=== PATIENT | male | born 1945 | race Caucasian/White ===

== ENCOUNTER 2019-11-15 11:11 | Emergency (ER) | payer MEDICARE ==
[~2019-11-15] VITALS: Ht 177.8 cm; Wt 104.7 kg
--- NOTE | 2019-11-15 11:56 | NUR ---
Patient from triage reports groin pain. Does state he has intermittent balance issues and leg weakness. Denies any other complaints at this time. NAD noted. RR even and unlabored.
[2019-11-15 12:08] LABS: BASOPHILS # (AUTO) 0.02 x10^3/uL (0-0.1); BASOPHILS % (AUTO) 0 % (0-1); EOSINOPHILS # (AUTO) 0.12 x10^3/uL (0-0.4); EOSINOPHILS % (AUTO) 2 % (1-7); LYMPHOCYTES # (AUTO) 1.97 x10^3/uL (1-3.4); LYMPHOCYTES % (AUTO) 38 % (22-44); MD NO; MEAN CORPUSCULAR HEMOGLOBIN 33.1 pg (27.5-34.5); MEAN CORPUSCULAR HGB CONC 33.6 g/dL (33.2-36.2); MEAN CORPUSCULAR VOLUME 98.7 fL (81-97); MEAN PLATELET VOLUME 8.9 fL (7.4-10.4); MONOCYTES # (AUTO) 0.55 x10^3/uL (0.2-0.8); MONOCYTES % (AUTO) 11 % (2-9); NEUTROPHILS % (AUTO) 49 % (42-75); PLATELET COUNT 171 x10^3/uL (130-400); RED BLOOD COUNT 4.28 x10^6/uL (4.38-5.82); RED CELL DISTRIBUTION WIDTH 14.7 % (9.4-14.8)
[2019-11-15 12:16] LABS: ALBUMIN 3.5 g/dL (3.4-5.0); ANION GAP 6 mmol/L (5-15); CALCIUM 9.1 mg/dL (8.5-10.1); CHLORIDE 110 mmol/L (98-107); CREATININE 1.09 mg/dL (0.7-1.3)
--- NOTE | 2019-11-15 12:26 | NUR ---
IV access obtained I atempt pr tolerated well. 20g LAC. locked. Pt aware of plan of care.
[2019-11-15] MEDS ORDERED: OMNIPAQUE 350 MG/ML, 100ML BOTTLE ONE (13:24)
--- NOTE | 2019-11-15 13:25 | NUR ---
Resting on [place]
[2019-11-15 13:56] VITALS: BP 143/77
--- NOTE | 2019-11-15 14:27 | NUR ---
Patient discharged home discharge instructions provided. all questiosn and concerns addressed. NAD noted at time of discharge. Ambulatory with steady gait speech clear. denied pain. All patient belongings are with patient
== END 2019-11-15 14:30 | disposition home or self-care (01) ==
LOC: ED 12:34
DX: M51.17 Intervertebral disc disorders with radiculopathy, lumbosacral region (principal)
CPT/HCPCS: 36415; 70450; 70498; 72110; 80048; 82040; 85025; 93005; 99284; Q9967

== ENCOUNTER → 2021-03-08 | Outpatient (CLI) | payer MEDICARE | END | disposition home or self-care (01) | LOC: CFH 08:14 | PROVIDERS: ATTEND Internal Medicine Cardiovascular Disease | DX: E66.9 Obesity, unspecified (principal) | CPT/HCPCS: 71046 ==

== ENCOUNTER 2021-04-04 11:52 | Outpatient (CLI) | payer MEDICARE | END 2021-04-04 23:59 | disposition home or self-care (01) | LOC: CVU 11:52 → CFH 23:59 | PROVIDERS: ATTEND Internal Medicine Cardiovascular Disease | DX: Z13.6 Encounter for screening for cardiovascular disorders (principal); R94.31 Abnormal electrocardiogram [ECG] [EKG]; I77.810 Thoracic aortic ectasia | CPT/HCPCS: 75571; 78452; 93017; 93306; 93356; A9502 ==